=== PATIENT | female | born 1985 | race Caucasian/White ===

== ENCOUNTER 2016-07-05 13:33 | Day surgery (SDCO) | payer OTHER ==
[2016-07-05 13:55] LABS: BILIRUBIN NEGATIVE (NEGATIVE); BLOOD TRACE-LYSED Ery/uL (NEGATIVE); CLARITY HAZY (CLEAR); COLOR YELLOW (YELLOW); GLUCOSE (U) NORMAL (NORMAL); KETONE (U) NEGATIVE (NEGATIVE); LEUKOCYTES 3+ Leu/uL (NEGATIVE); NITRITE NEGATIVE (NEGATIVE); PROTEIN NEGATIVE (NEGATIVE); SPECIFIC GRAVITY <=1.005 (1.001-1.030); UROBILINOGEN 0.2 mg/dL (0.2-1.0)
[2016-07-05 13:57] LABS: BACTERIA TRACE
[2016-07-05 14:28] LABS: BASOPHIL 0.4 % (0-2); EOSINOPHIL 2.9 % (0-5); HCT 41.7 % (37.0-47.0); HGB 14.2 g/dl (12.5-16.0); LYMPHOCYTE 19.9 % (15-48); MCH 28.9 pg (25.0-31.0); MCHC 34.1 g/dL (32.0-36.0); MCV 84.8 fL (78.0-100.0); MONOCYTE 8.4 % (0-12); MPV 8.7 fL (6.0-9.5); NEUTROPHIL 68.4 % (41-80); PLT 276 K/uL (150-400); RBC 4.92 M/uL (4.20-5.40); WBC 10.6 K/uL (4.0-10.5)
[2016-07-05 14:47] LABS: ALBUMIN 4.3 g/dL (3.5-5.0); BILIRUBIN - TOTAL 0.5 mg/dL (0.1-1.0); CREATININE 0.7 mg/dL (0.5-1.0); GLOBULIN (CALCULATION) 2.8 g/dL (2.2-4.2); POTASSIUM 3.9 mmol/L (3.5-5.1); TOTAL PROTEIN 7.1 g/dL (6.4-8.3)
[2016-07-05 15:04] LABS: LACTIC ACID 1.5 mmol/L (0.5-2.2)
[2016-07-06 05:12] LABS: HCT 38.6 % (37.0-47.0); HGB 12.6 g/dl (12.5-16.0); MCH 28.4 pg (25.0-31.0); MCHC 32.6 g/dL (32.0-36.0); MCV 86.9 fL (78.0-100.0); RBC 4.44 M/uL (4.20-5.40); WBC 5.8 K/uL (4.0-10.5)
[2016-07-06 05:26] LABS: ALBUMIN 3.7 g/dL (3.5-5.0); BILIRUBIN - DIRECT 0.5 mg/dL (0.0-0.2); BILIRUBIN - TOTAL 0.9 mg/dL (0.1-1.0); CREATININE 0.8 mg/dL (0.5-1.0); TOTAL PROTEIN 5.7 g/dL (6.4-8.3)
[2016-07-06 10:17] LABS: INR 1.05 (0.9-1.2); PROTHROMBIN TIME 13.3 SECONDS (11.7-14.0); PTT 25.8 SECONDS (23.2-31.4)
[2016-07-06] MEDS ORDERED: NORCO 5-325 TA1 EAC1 PO (15:53)
[2016-07-06] MEDS ORDERED: CELEXA20 MG PO (15:53)
[2016-07-06] MEDS ORDERED: CELEXA20 M1 PO (15:53)
== END 2016-07-06 16:56 | disposition home or self-care (01) ==
LOC: FER 13:33 → FMS 16:28
PROVIDERS: Emergency Medicine; Internal Medicine; Nurse Practitioner; ADMIT Internal Medicine
DX: K35.80 Unspecified acute appendicitis (principal); F41.9 Anxiety disorder, unspecified; Z82.49 Family history of ischemic heart disease and other diseases of the circulatory system; Z79.899 Other long term (current) drug therapy
CPT/HCPCS: 36415; 80048; 80053; 80076; 81001; 83605; 84703; 85025; 85610; 85730; 87040; 87088; 88304; G0378; J2270; J2405; J2543; J2704; J2710; J3010; Q9967

== ENCOUNTER → 2020-05-23 | Day surgery (SDC) | payer OTHER ==
[~2020-05-23] MED LIST: ABILIFY5 M1 PO; CELEXA20 M1 PO; CELEXA20 MG PO; CEPHALEXIN500 M1 PO; CIPRO500 M1 PO; CLARITIN-D 121 EACH PO; ELAVIL25 MG PO; IBUPROFEN800 M1 PO; IBUPROFEN800 MG PO; MEDROL 4MG DOSEP4 MG PO; MELATONIN5 M2 PO; METRONIDAZOLE500 MG PO; NORCO 5-325 TA1 EAC1 PO; PERCOCET 5-3251 EACH PO; PRISTIQ ER50 MG PO; PROMETHEGA12.5 MG/SU PR; REGLAN10 MG PO; ROBAXIN500 MG PO; TESSALON PERLE100 M1 PO; ZPAK PO
[2020-05-23 07:46] LABS: HCG (URINE) SCREEN NEGATIVE (NEGATIVE)
== END | disposition home or self-care (01) ==
LOC: FAS 07:12
PROVIDERS: Obstetrics & Gynecology
DX: N72 Inflammatory disease of cervix uteri (principal); F32.9 Major depressive disorder, single episode, unspecified; F41.9 Anxiety disorder, unspecified; J30.9 Allergic rhinitis, unspecified; K76.0 Fatty (change of) liver, not elsewhere classified; E78.00 Pure hypercholesterolemia, unspecified; K21.9 Gastro-esophageal reflux disease without esophagitis; I10 Essential (primary) hypertension; F17.210 Nicotine dependence, cigarettes, uncomplicated; E66.9 Obesity, unspecified; Z68.39 Body mass index [BMI] 39.0-39.9, adult; Z87.42 Personal history of other diseases of the female genital tract; Z87.448 Personal history of other diseases of urinary system
CPT/HCPCS: 84703; 93005; J1170; J2250; J2405; J2704; J2710; J3010; J7120

== ENCOUNTER 2020-07-07 18:36 | Emergency (ER) | payer OTHER ==
[~2020-07-07 18:36] MED LIST changes: -CEPHALEXIN500 M1 PO
[2020-07-07 19:00] LABS: EOSINOPHIL 5.9 % (0-5); HCT 37.8 % (37.0-47.0); HGB 11.6 g/dl (12.5-16.0); LYMPHOCYTE 29.2 % (15-48); MCH 25.2 pg (25.0-31.0); MCHC 30.7 g/dL (32.0-36.0); MCV 82.2 fL (78.0-100.0); MPV 8.5 fL (6.0-9.5); NEUTROPHIL 56.5 % (41-80); NRBC 0; PLT 364 K/uL (150-400); RDW 14.4 % (11.5-14.0)
[2020-07-07 19:21] LABS: INR 1.01 (0.9-1.2); PROTHROMBIN TIME 12.6 SECONDS (11.4-13.6); PTT 25.5 SECONDS (22.2-34.7)
[2020-07-07 19:28] LABS: ALBUMIN 3.8 g/dL (3.4-5.0); BILIRUBIN - TOTAL 0.2 mg/dL (0.2-1.0); CREATININE 0.83 mg/dL (0.51-0.95); GLOBULIN (CALCULATION) 3.9 g/dL; POTASSIUM 4.1 mmol/L (3.5-5.1); TOTAL PROTEIN 7.7 g/dL (6.4-8.2)
[2020-07-07 22:37] LABS: BUN/CREAT RATIO (CALC) 16.2 RATIO; CREATININE 0.74 mg/dL (0.51-0.95); POTASSIUM 4.1 mmol/L (3.5-5.1)
[2020-07-07 22:50] LABS: BILIRUBIN NEGATIVE (NEGATIVE); BLOOD 2+ Ery/uL (NEGATIVE); CLARITY HAZY (CLEAR); COLOR YELLOW (YELLOW); GLUCOSE (U) NORMAL (NORMAL); LEUKOCYTES 3+ Leu/uL (NEGATIVE); NITRITE NEGATIVE (NEGATIVE); PROTEIN NEGATIVE (NEGATIVE); UROBILINOGEN 0.2 mg/dL (0.2-1.0)
[2020-07-07 22:53] LABS: HCG (URINE) SCREEN NEGATIVE (NEGATIVE)
[2020-07-07 22:58] LABS: AMORPHOUS URATES CRYSTALS MODERATE; BACTERIA 3+; URINARY RBC RARE; URINARY WBC 20-50
[2020-07-08] MEDS ORDERED: CEPHALEXIN500 M1 PO (00:48)
== END 2020-07-08 01:20 | disposition home or self-care (01) ==
LOC: FER 18:36
PROVIDERS: Emergency Medicine; Student in an Organized Health Care Education/Training Program
DX: R07.89 Other chest pain (principal); N39.0 Urinary tract infection, site not specified; F17.210 Nicotine dependence, cigarettes, uncomplicated
CPT/HCPCS: 36415; 71045; 80048; 80053; 81001; 84484; 84703; 85025; 85610; 85730; 93005

== ENCOUNTER 2020-11-15 14:06 | Emergency (ER) | payer OTHER ==
[~2020-11-15] VITALS: Ht 162.6 cm; Wt 102.1 kg
[~2020-11-15 14:06] MED LIST changes: +CEPHALEXIN500 M1 PO
[2020-11-15 15:39] LABS: BASOPHIL 0.6 % (0-2); EOSINOPHIL 4.3 % (0-5); HGB 12.9 g/dl (12.5-16.0); LYMPHOCYTE 21.5 % (15-48); MCH 26.6 pg (25.0-31.0); MCHC 32.3 g/dL (32.0-36.0); MCV 82.5 fL (78.0-100.0); MONOCYTE 6.3 % (0-12); MPV 8.7 fL (6.0-9.5); NEUTROPHIL 66.8 % (41-80); NRBC 0; PLT 280 K/uL (150-400); RBC 4.85 M/uL (4.20-5.40); RDW 16.4 % (11.5-14.0); WBC 10.3 K/uL (4.0-10.5)
[2020-11-15 15:51] LABS: BUN/CREAT RATIO (CALC) 11.5 RATIO; CREATININE 0.61 mg/dL (0.51-0.95); POTASSIUM 3.7 mmol/L (3.5-5.1)
[2020-11-15 17:13] LABS: BILIRUBIN NEGATIVE (NEGATIVE); BLOOD TRACE-LYSED Ery/uL (NEGATIVE); CLARITY CLEAR (CLEAR); COLOR YELLOW (YELLOW); GLUCOSE (U) TRACE mg/dL (NORMAL); LEUKOCYTES 1+ Leu/uL (NEGATIVE); NITRITE NEGATIVE (NEGATIVE); PROTEIN NEGATIVE (NEGATIVE); SPECIFIC GRAVITY <=1.005 (1.001-1.030); UROBILINOGEN 0.2 mg/dL (0.2-1.0)
[2020-11-15 17:29] LABS: BACTERIA TRACE; URINARY RBC RARE
[2020-11-15] MEDS ORDERED: MEDROL 4MG DOSEP4 MG PO ×2 (17:57→18:14)
[2020-11-15] MEDS ORDERED: CYCLOBENZAPRINE10 MG PO ×2 (17:57→18:14)
[2020-11-15] MEDS ORDERED: CIPRO500 MG PO ×2 (17:57→18:14)
== END 2020-11-15 18:55 | disposition home or self-care (01) ==
LOC: FER 14:06
PROVIDERS: Nurse Practitioner Family
DX: N39.0 Urinary tract infection, site not specified (principal); M62.830 Muscle spasm of back
CPT/HCPCS: 36415; 71045; 80048; 81001; 84484; 85025; 85379; 87088; 93005

== ENCOUNTER 2021-05-13 06:22 | Emergency (ER) | payer OTHER ==
[~2021-05-13 06:22] MED LIST changes: +CIPRO500 MG PO; +CYCLOBENZAPRINE10 MG PO
[2021-05-13 07:57] LABS: BASOPHIL 0.7 % (0-2); EOSINOPHIL 2.8 % (0-5); HCT 46.8 % (37.0-47.0); HGB 15.4 g/dl (12.5-16.0); LYMPHOCYTE 27.1 % (15-48); MCH 28.1 pg (25.0-31.0); MCHC 32.9 g/dL (32.0-36.0); MCV 85.2 fL (78.0-100.0); MONOCYTE 7.2 % (0-12); MPV 8.6 fL (6.0-9.5); NEUTROPHIL 61.7 % (41-80); NRBC 0; PLT 343 K/uL (150-400); RBC 5.49 M/uL (4.20-5.40); RDW 13.2 % (11.5-14.0); WBC 14.8 K/uL (4.0-10.5)
[2021-05-13 08:08] LABS: BILIRUBIN NEGATIVE (NEGATIVE); BLOOD TRACE-INTACT Ery/uL (NEGATIVE); CLARITY CLEAR (CLEAR); COLOR YELLOW (YELLOW); GLUCOSE (U) NORMAL (NORMAL); LEUKOCYTES NEGATIVE Leu/uL (NEGATIVE); NITRITE NEGATIVE (NEGATIVE); PROTEIN NEGATIVE (NEGATIVE); UROBILINOGEN 0.2 mg/dL (0.2-1.0)
[2021-05-13 08:19] LABS: BACTERIA TRACE; URINARY WBC RARE
[2021-05-13 08:20] LABS: ALBUMIN 4.4 g/dL (3.4-5.0); BILIRUBIN - TOTAL 0.3 mg/dL (0.2-1.0); BUN/CREAT RATIO (CALC) 10.6 RATIO; CREATININE 0.66 mg/dL (0.51-0.95); GLOBULIN (CALCULATION) 4.2 g/dL; POTASSIUM 3.8 mmol/L (3.5-5.1); TOTAL PROTEIN 8.6 g/dL (6.4-8.2)
[2021-05-13] MEDS ORDERED: ONDANSETRON ODT4 MG PO (08:28)
[2021-05-13] MEDS ORDERED: PERCOCET 5-3251 EACH PO (08:28)
[2021-05-13] MEDS ORDERED: PHENERGAN25 M1 PO (08:28)
[2021-05-13] MEDS ORDERED: MAALOX ADVANCE355 ML PO (08:31)
[2021-05-13] MEDS ORDERED: CARAFATE1 GM PO (08:31)
[2021-05-13 08:40] LABS: CORONAVIRUS 2019 SARS-COV-2 NEGATIVE (NEGATIVE); INFLUENZA A NAA NEGATIVE (NEGATIVE)
== END 2021-05-13 09:35 | disposition home or self-care (01) ==
LOC: FER 06:22
PROVIDERS: Internal Medicine
DX: R10.13 Epigastric pain (principal); R11.2 Nausea with vomiting, unspecified; F17.210 Nicotine dependence, cigarettes, uncomplicated; Z20.822 Contact with and (suspected) exposure to COVID-19
CPT/HCPCS: 36415; 71250; 80053; 81001; 83690; 84145; 85025; J1170; J2405; J7120; U0002

== ENCOUNTER 2021-06-02 07:36 | Emergency (ER) | payer OTHER ==
[~2021-06-02 07:36] MED LIST changes: +CARAFATE1 GM PO; +MAALOX ADVANCE355 ML PO; +ONDANSETRON ODT4 MG PO; +PHENERGAN25 M1 PO
[2021-06-02 08:14] LABS: BASOPHIL 0.8 % (0-2); EOSINOPHIL 3.5 % (0-5); HCT 48.5 % (37.0-47.0); HGB 16.1 g/dl (12.5-16.0); LYMPHOCYTE 35.2 % (15-48); MCH 28.3 pg (25.0-31.0); MCHC 33.2 g/dL (32.0-36.0); MCV 85.2 fL (78.0-100.0); MONOCYTE 6.8 % (0-12); MPV 8.7 fL (6.0-9.5); NEUTROPHIL 53.2 % (41-80); NRBC 0; PLT 392 K/uL (150-400); RBC 5.69 M/uL (4.20-5.40); RDW 13.2 % (11.5-14.0); WBC 13.5 K/uL (4.0-10.5)
[2021-06-02 08:15] LABS: BILIRUBIN NEGATIVE (NEGATIVE); BLOOD 1+ Ery/uL (NEGATIVE); CLARITY CLEAR (CLEAR); COLOR YELLOW (YELLOW); GLUCOSE (U) NORMAL (NORMAL); LEUKOCYTES 1+ Leu/uL (NEGATIVE); NITRITE NEGATIVE (NEGATIVE); PROTEIN TRACE (LOW) mg/dL (NEGATIVE); SPECIFIC GRAVITY <=1.005 (1.001-1.030); UROBILINOGEN 0.2 mg/dL (0.2-1.0)
[2021-06-02 08:21] LABS: ALBUMIN 4.4 g/dL (3.4-5.0); BILIRUBIN - TOTAL 0.4 mg/dL (0.2-1.0); CREATININE 0.73 mg/dL (0.51-0.95); GLOBULIN (CALCULATION) 4.1 g/dL; POTASSIUM 3.5 mmol/L (3.5-5.1); TOTAL PROTEIN 8.5 g/dL (6.4-8.2)
[2021-06-02 08:28] LABS: BACTERIA TRACE; URINARY RBC RARE
[2021-06-02 08:45] LABS: ECSTASY (MDMA) NEGATIVE (NEGATIVE); MARIJUANA (THC) POSITIVE (NEGATIVE); METHADONE NEGATIVE (NEGATIVE); OPIATES NEGATIVE (NEGATIVE)
[2021-06-02 08:46] LABS: AMPHETAMINES NEGATIVE (NEGATIVE); BARBITURATES NEGATIVE (NEGATIVE); OXYCODONE NEGATIVE (NEGATIVE)
[2021-06-02] MEDS ORDERED: FLEXERIL5 MG PO (10:01)
== END 2021-06-02 10:13 | disposition home or self-care (01) ==
LOC: FER 07:36
PROVIDERS: Emergency Medicine
DX: K21.9 Gastro-esophageal reflux disease without esophagitis (principal); M54.6 Pain in thoracic spine; F17.210 Nicotine dependence, cigarettes, uncomplicated; Z28.311 Partially vaccinated for COVID-19
CPT/HCPCS: 36415; 80053; 80305; 81001; 83690; 85025; J2405; J7030; Q9967

== ENCOUNTER 2021-06-22 11:22 | Emergency (ER) | payer SELFPAY ==
[~2021-06-22 11:22] MED LIST changes: +FLEXERIL5 MG PO
[2021-06-22] MEDS ORDERED: NAPROXEN500 MG PO (12:32)
== END 2021-06-22 12:48 | disposition home or self-care (01) ==
LOC: FER 11:22
DX: S93.401A Sprain of unspecified ligament of right ankle, initial encounter (principal); Z28.310 Unvaccinated for COVID-19; W19.XXXA Unspecified fall, initial encounter; X50.1XXA Overexertion from prolonged static or awkward postures, initial encounter; Y92.009 Unspecified place in unspecified non-institutional (private) residence as the place of occurrence of the external cause
CPT/HCPCS: 73610